=== PATIENT | female | born 1970 | race Hispanic/Latino ===

== ENCOUNTER 2025-10-15 11:17 | Emergency (ER) | payer BC ==
[~2025-10-15] VITALS: Ht 160 cm; Wt 68.0 kg
[2025-10-15 11:49] LABS: IMMATURE GRANULOCYTE ABSOLUTE 0.10 K/uL (0-1); NUCLEATED RED BLOOD CELLS 0.0 % (0.0-0.19); PLATELET COUNT (AUTO) 148 K/uL (130-400); RED BLOOD CELL COUNT(AUTO) 5.96 MIL/uL (4.00-5.50); RED CELL DISTRIBUTION WIDTH 12.9 % (11.0-15.5); WHITE BLOOD COUNT (AUTO) 22.1 K/uL (4.8-10.8)
[2025-10-15 11:53] LABS: CREATININE 0.8 mg/dL (0.5-1.0); GLOMERULAR FILTR. RATE CALC 86.0 mL/min (>90); GLUCOSE,RANDOM 166.0 mg/dL (70-105); SODIUM SERUM 140.0 mmol/L (136-145); UREA NITROGEN, BLOOD 19.0 mg/dL (7-18)
[2025-10-15 11:58] LABS: ASPARTATE AMINOTRANSFERASE 23.0 U/L (10-37); TOTAL PROTEIN, SERUM 7.9 g/dL (6.0-8.3)
--- NOTE | 2025-10-15 12:08 | ERN ---
General Chief Complaint: Nausea,Vomiting,Diarrhea Stated Complaint: VOMITING Time Seen by MD: 11:30 History of Present Illness Initial Comments The patient is a 55-year-old female who came to the ER with complaint of nausea and vomiting with a past24 hours. The patient said that the nausea and vomiting started yesterday in the morning and to allow she has had8 episodes. The patient complains of no diarrhea but is having soft stools. Timing/Duration: 24 hours Allergies: Coded Allergies: No Known Drug Allergies (Unverified Allergy, Unknown, 10/15/25) Home Meds Active Scripts Ondansetron (Ondansetron Odt) 4 Mg Tab.rapdis, 1 TAB PO BID PRN for nausea/vomiting for 5 Days, #10 TAB 0 Refills Prov:RAUDEL LOWE MD 10/15/25 Metronidazole (Metronidazole) 500 Mg Tablet, 1 TAB PO BID for 5 Days, #10 TAB 0 Refills Prov:RAUDEL LOWE MD 10/15/25 Past Medical History Past Medical History: Diabetes-Type II, High Cholesterol Medical History Other: PANCREATITIS Past Surgical History: Cholecystectomy, Other, Surgical History Other: LT KNEE SX, ABD HERNIA REPAIR Gastrointestinal/Abdominal: (+) nausea, (+) vomiting, (+) abdominal pain Physical Exam General Appearance: (-) no apparent distress, (-) apparent distress, (-) mild distress, (-) moderate distress, (-) severe distress, (-) thin, (-) obese, (-) combative, (-) cachetic, (-) anxious, (-) other documentation Orientation: (-) alert, (-) oriented x 3, (-) disoriented, (-) other documentation Ear, Nose, Throat: (-) hearing grossly normal, (-) normal ENT inspection, (-) moist mucous membraine, (-) normal pharynx, (-) normal TM, (-) abnormal TM, (-) pharyngeal erythema, (-) sinus drainange, (-) sinus pain, (-) tonsillar exudate, (-) tonsillar swelling, (-) nasal drip, (-) nasal congestion, (-) hearing decreased, (-) dry mucous membraine, (-) other documentation Neck: (-) normal inspection, (-) supple, (-) full range of motion, (-) no JVD, (-) non-tender, (-) no bruit, (-) tender, (-) limited range of motion, (-) tender lateral, (-) tender midline, (-) thyromegaly, (-) lymphadenopathy, (-) masses, (-) carotid bruit, (-) other documentaion Respiratory: (-) chest non-tender, (-) lungs clear, (-) well ventilated, (-) decreased breath sounds, (-) retractions, (-) abnormal breath sound, (-) crackles, (-) plerual rub, (-) rales, (-) rhonchi, (-) stridor, (-) wheezing, (- ) other documentation Heart: (-) regular, (-) no gallop, (-) murmur, (-) irregular, (-) bradycardia, (-) tachycardia, (-) systolic murmur, (-) diastolic murmur, (-) extra beats, (-) friction rub, (-) gallop/S3, (-) gallop/S4, (-) other documentation Gastrointestinal: (+) tender Neurologic/Psychiatric: (-) normal speech, (-) no motor defecits, (-) no sensory deficits, (-) 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 as tested, (-) normal gait, (-) normal mood/affect, (-) abnormal cerebellar tests, (-) abnormal gait, (-) aphasia, (-) facial droop, (-) other documentation Results Laboratory and Microbiology Lab and Micro Result Laboratory Tests Test 10/15/25 11:37 10/15/25 13:18 White Blood Count 22.1 K/uL (4.8-10.8) H Red Blood Count 5.96 MIL/uL (4.00-5.50) H Hemoglobin 15.9 g/dL (12.0-16.0) Hematocrit 49.3 % (36-48) H Mean Corpuscular Volume 82.7 fL (79-99) Mean Corpuscular Hemoglobin 26.7 pg (27.0-33.0) L Mean Corpuscular Hemoglobin Concent 32.3 g/dL (32.0-36.0) Red Cell Distribution Width 12.9 % (11.0-15.5) Platelet Count 148 K/uL (130-400) Mean Platelet Volume 10.2 fL (7.5-10.5) Immature Granulocyte % (Auto) 0.5 % (0-1) Neutrophils (%) (Auto) 84.2 % (40.0-77.0) H Lymphocytes (%) (Auto) 9.1 % (21.0-51.0) L Monocytes (%) (Auto) 5.7 % (3.0-13.0) Eosinophils (%) (Auto) 0.1 % (0.0-8.0) Basophils (%) (Auto) 0.4 % (0.0-5.0) Neutrophils # (Auto) 18.6 K/uL (1.8-7.7) H Lymphocytes # (Auto) 2.0 K/uL (1.0-4.8) Monocytes # (Auto) 1.3 K/uL (0.1-1.0) H Eosinophils # (Auto) 0.02 K/uL (0.00-0.70) Basophils # (Auto) 0.09 K/uL (0.00-0.20) Absolute Immature Granulocyte (auto 0.10 K/uL (0-1) Nucleated Red Blood Cells 0.0 % (0.0-0.19) White Cell Morphology Comment See comments Prothrombin Time 10.8 SEC (9.6-11.6) Prothromb Time International Ratio 1.02 (0.85-1.15) Activated Partial Thromboplast Time 25.0 SEC (26.3-35.5) L Sodium Level 140 mmol/L (136-145) Potassium Level 4.7 mmol/L (3.5-5.1) Chloride Level 100 mmol/L (101-111) L Carbon Dioxide Level 31 mmol/L (21-32) Blood Urea Nitrogen 19 mg/dL (7-18) H Creatinine 0.8 mg/dL (0.5-1.0) Glomerular Filtration Rate Calc 86 mL/min (>90) Random Glucose 166 mg/dL (70-105) H Lactic Acid Level 2.2 mmol/L (0.8-2.5) Total Calcium 9.9 mg/dL (8.5-10.1) Total Bilirubin 0.6 mg/dL (0.2-1.0) Direct Bilirubin 0.1 mg/dL (0.0-0.3) Aspartate Amino Transf (AST/SGOT) 23 U/L (10-37) Alanine Aminotransferase (ALT/SGPT) 48 U/L (12-78) Alkaline Phosphatase 98 U/L (50-136) Troponin I High Sensitivity 16 ng/L (4-50) Total Protein 7.9 g/dL (6.0-8.3) Albumin 4.2 g/dL (3.5-5.0) Lipase 24 U/L (16-77) Procalcitonin 0.05 ng/mL (0.05-0.5) Urine Color LIGHT-YELLOW (YELLOW) Urine Appearance CLEAR (CLEAR) Urine pH 6.5 (5.0-8.0) Urine Specific Kyle 1.020 (1.001-1.031) Urine Protein NEGATIVE mg/dL (NEGATIVE) Urine Glucose (UA) >=1000 mg/dL (NEGATIVE) H Urine Ketones 100 mg/dL (NEGATIVE) H Urine Occult Blood NEGATIVE (NEGATIVE) Urine Nitrate NEGATIVE (NEGATIVE) Urine Bilirubin NEGATIVE mg/dL (NEGATIVE) Urine Urobilinogen 0.2 mg/dL (0.2-1.0) Urine Leukocyte Esterase NEGATIVE Pradip/uL Urine RBC 2-5 /HPF (0-1) H Urine WBC 0-1 /HPF (0-1) Urine Squamous Epithelial Cells RARE /HPF (0-2) Urine Bacteria None /HPF (None Seen) MDM MDM: Differential diagnosis: Abdominal pain, gastroenteritis Rationale: Tests considered and ordered secondary to shared decision making include: Previous outside records reviewed: Old ER visits. Risk of complication and/or morbidity or mortality of patient management: None Medications-Per medication reconciliation Need for hospitalization: Patient does not meet criteria for hospitalization. Need for emergency major/minor surgery: No ED Course Orders Procedure Category Date Status Time 12 Lead Ekg Tracing- EKG 10/15/25 Logged Technical 11:30 Cbc With Differential LAB 10/15/25 Complete 11:30 Basic Metabolic Panel LAB 10/15/25 Complete 11:30 Hepatic Function Panel LAB 10/15/25 Complete 11:30 Lactic Acid LAB 10/15/25 Complete 11:30 Lipase LAB 10/15/25 Complete 11:30 Procalcitonin LAB 10/15/25 Complete 11:30 Pt And Ptt LAB 10/15/25 Complete 11:30 Troponin I High LAB 10/15/25 Complete Sensitivity 11:30 Urinalysis LAB 10/15/25 Complete W/Microscopic 11:30 Ondansetron 4mg Inj PHA 10/15/25 Complete (Zofran 4mg Inj) 11:30 Famotidine 20mg Vial PHA 10/15/25 Complete (Pepcid 20mg Vial) 11:30 Ct Abdomen/Pelvis W/O CT 10/15/25 Resulted Contrast 12:14 Chest 1vw RAD 10/15/25 Resulted 12:14 0.9%Nacl 1000ml (Ns PHA 10/15/25 Complete 1000ml) 13:30 Lactic Acid (Removed) LAB 10/15/25 Logged 14:48 Current Medications Medications (Trade) Dose Ordered Sig/Will Route PRN Reason Start Time Stop Time Status Last Admin Dose Admin Famotidine (Pepcid 20mg Vial) 20 mg ONCE ONCE IV 10/15/25 11:30 10/15/25 11:33 DC 10/15/25 12:57 Ondansetron HCl (zoFRAN 4MG INJ) 4 mg ONCE ONCE IVP 10/15/25 11:30 10/15/25 11:33 DC 10/15/25 12:57 Sodium Chloride 1,000 ml @ 0 mls/hr ONCE ONCE IV 10/15/25 13:30 10/15/25 13:31 DC 10/15/25 13:51 Vital Signs Date Time Temp Pulse Resp B/P (MAP) Pulse Ox O2 Delivery O2 Flow Rate FiO2 10/15/25 13:10 99.0 91 20 109/57 99 Room Air* 0 21 10/15/25 11:19 97.2 104 16 134/68 98 Room Air 0 DX & DISP Disposition: Discharge Departure Impression: Primary Impression: Gastroenteritis Condition: Stable Scripts Ondansetron (Ondansetron Odt) 4 Mg Tab.rapdis 1 TAB PO BID PRN for nausea/vomiting for 5 Days, #10 TAB 0 Refills Prov: RAUDEL LOWE MD 10/15/25 Metronidazole (Metronidazole) 500 Mg Tablet 1 TAB PO BID for 5 Days, #10 TAB 0 Refills Prov: RAUDEL LOWE MD 10/15/25 Additional Instructions: *Follow up with your primary care physician in 2 - 3 days after discharge. *Continue all medications as prescribed. Do not discontinue or change dosages without consulting your PCP. *Gradually resume normal activities as tolerated. *Continue a balanced diet . Reduce salt intake to help manage BP. *Seek immediate medical attention if you experience chest pain, SOB or severe headache. RAUDEL LOWE MD Oct 15, 2025 12:08 VELIA POPE MD Oct 15, 2025 14:59
[2025-10-15 12:11] LABS: INR 1.02 (0.85-1.15)
--- NOTE | 2025-10-15 12:44 | HMCIMG ---
EXAM: CR Chest, 1 View. CLINICAL HISTORY: Abdominal pain with leukocytosis COMPARISON: None provided. FINDINGS: LUNGS: There is no mass, infiltrate, or acute pulmonary abnormality. PLEURAL SPACES: No pleural effusion or pneumothorax. MEDIASTINUM: Cardiac size and mediastinal contours within normal limits. BONES: No aggressive appearing osseous lesion seen. IMPRESSION: No acute cardiopulmonary pathology is evident. /[place]
[2025-10-15] MEDS: FAMOTIDINE 20MG VIAL IV ONE (12:57)
[2025-10-15] MEDS: 0.9%NACL 1000ML 1,000 ML IV ONE (13:51)
[2025-10-15 13:55] LABS: APPEARANCE,URINE CLEAR (CLEAR); GLUCOSE, URINE (UA) >=1000 mg/dL (NEGATIVE); LEUKOCYTE ESTERASE ,URINE NEGATIVE Leu/uL (NEGATIVE); NITRATE,URINE NEGATIVE (NEGATIVE); OCCULT BLOOD,URINE NEGATIVE (NEGATIVE); SQUAMOUS EPITHELIAL CELL,UR RARE /HPF (0-2)
--- NOTE | 2025-10-15 14:44 | HMCIMG ---
EXAM: CT Abdomen and Pelvis Without IV contrast CLINICAL HISTORY: Abdominal pain with Nausea and Vomitting TECHNIQUE: Axial computed tomography images of the abdomen and pelvis without intravenous contrast. CONTRAST: No IV contrast. COMPARISON: None provided. FINDINGS: LUNG BASES: The lung bases appear clear. No pleural effusions are seen. LIVER: Enlarged liver with fatty infiltration. GALLBLADDER AND BILE DUCTS: Cholecystectomy. No biliary ductal dilatation is evident. PANCREAS: Unremarkable. SPLEEN: Unremarkable. ADRENAL GLANDS: Unremarkable. KIDNEYS, URETERS, AND BLADDER: The kidneys appear within normal limits. There is no hydronephrosis or hydroureter. No urinary calculi are seen. STOMACH AND BOWEL: Unremarkable appearance of the stomach and bowel. No evidence of bowel obstruction. No evidence suggesting enteritis or colitis. Large amount of stool in the colon. APPENDIX: Normal appendix. PERITONEUM: No free fluid. No free air. LYMPH NODES: No lymphadenopathy is evident. REPRODUCTIVE: Unremarkable as visualized. VASCULATURE: No evidence of abdominal aortic aneurysm. BONES: No aggressive appearing osseous lesion. No acute osseous pathology evident. IMPRESSION: No acute intra-abdominal or pelvic abnormality. Constipation. Enlarged liver with fatty infiltration. /[place]
[2025-10-15] MEDS ORDERED: METR-172 PO (14:57)
[2025-10-15] MEDS ORDERED: ONDA-243 PO (14:57)
[2025-10-15 16:37] VITALS: BP 127/50; PULSE 85; RESP 20; TEMP 98.9; O2SAT 98
--- NOTE | 2025-10-17 11:12 | EKG ---
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
== END 2025-10-15 16:40 | disposition home or self-care (01) ==
LOC: EDH 11:17
DX: K52.9 Noninfective gastroenteritis and colitis, unspecified (principal); E11.9 Type 2 diabetes mellitus without complications; E78.00 Pure hypercholesterolemia, unspecified; R11.2 Nausea with vomiting, unspecified; Z87.19 Personal history of other diseases of the digestive system; Z90.49 Acquired absence of other specified parts of digestive tract; Z98.890 Other specified postprocedural states
CPT/HCPCS: 99284; 74176; 96374; 71045; 96361; 96375; 80076; 84484; 80048; 83690; 85025; 85610; 85730; 83605 ×2; 81001; 36415; 93005; 84145; J1308; J7030; J2405; 99285